=== PATIENT | female | born 1965 | race African-American/Black ===

== ENCOUNTER → 2017-03-24 | Outpatient (CLI) | payer MEDICARE ==
[~2017-03-24] MED LIST: AEROSOL THERAPY1 DEV INH; ALBUTEROL0.83 MG/ML IH; AMOXICILLIN 50500 MG PO; ASPI325T6 PO; ATIVAN0.5 MG PO; AZITHROMYCIN250 MG PO; BACTRIM DS 8001 TAB PO; BENADRYL25 M2 PO; BENTYL 10MG10 MG/CAP PO; BIAXIN; CATAFLAM50 MG PO; CELEXA 20MG20 MG/TAB PO; CELEXA PO; CELEXA40 MG PO; CEPHALEXIN500 M1 PO; CITALOPRAM10 MG PO; CLONAZEPAM0.5 MG PO; CYPROHEPTADINE H4 MG PO; DEPRESSION MED; EFFEXOR 75M75 MG/TAB PO; FLAGYL500 MG PO; FLEXERIL5 MG PO; GEODON60 MG PO; HCTZ; HCTZ 25MG TAB25 MG PO; KLONOPIN 0.5MG0.5 MG PO; LAMICTAL; LEVOTHROID0.025 MG PO; LITHIUM CA150 MG/CAP; LORTAB 5/500 501 TAB PO; MELATONIN3 M1 PO; METFORMIN HCL500 M1 PO; METFORMIN500 MG PO; MOTRIN 600600 MG/TAB PO; MOTRIN 800800 MG/TAB PO; NAPROSYN 2250 MG/TAB PO; NEXIUM40 MG PO; NO HOME MEDICATIONS; NORCO 325 MG-51 TAB PO; NORCO PO; PEPCID 20MG TAB20 MG PO; PERCOCET 325 MG1 TA2 PO; PREDNISONE 20MG20 MG PO; PREDNISONE10 MG PO; PREDNISONE20 MG PO; PRILOTC PO; RISPERDAL 1M1 MG/TAB PO; SEROQUEL50 MG PO; SIMVASTATIN20 MG PO; SIMVASTATIN40 MG PO; SYNTHROID PO; TESSALON PERLE200 MG PO; VENTOLIN0.09 MG IH; VICODIN 5/5001 UDTAB PO; ZITHROMAX Z PA250 MG PO; ZITHROMAX250 M1 PO; ZYPREXA2.5 MG; [UNRECOGNIZED DRUG - OTHER] TP; vicoprofen
== END ==
LOC: MC.RAD 10:20
DX: Z12.31 Encounter for screening mammogram for malignant neoplasm of breast (principal)

== ENCOUNTER 2017-04-07 09:23 | Day surgery (SDC) | payer MEDICARE ==
[~2017-04-07] VITALS: Ht 172.7 cm; Wt 97.7 kg
[~2017-04-07 09:23] MED LIST changes: -PRILOTC PO
[2017-04-07 09:50] VITALS: BP 148/93; PULSE 66; TEMP 98.5
[2017-04-07 12:05] VITALS: BP 172/103; PULSE 76; TEMP 97.5
[2017-04-07 12:20] VITALS: BP 121/93; PULSE 55
[2017-04-07] MEDS ORDERED: PRILOTC PO (12:26)
[2017-04-07 12:35] VITALS: BP 172/90; PULSE 55
[2017-04-07 15:47] VITALS: BP 126/69; PULSE 64
== END 2017-04-07 12:55 | disposition home or self-care (01) ==
LOC: SDCO 09:23
DX: K31.89 Other diseases of stomach and duodenum (principal); K29.30 Chronic superficial gastritis without bleeding; I10 Essential (primary) hypertension; J42 Unspecified chronic bronchitis; E78.5 Hyperlipidemia, unspecified; F31.9 Bipolar disorder, unspecified; F43.10 Post-traumatic stress disorder, unspecified; D86.9 Sarcoidosis, unspecified; F17.210 Nicotine dependence, cigarettes, uncomplicated; Z80.0 Family history of malignant neoplasm of digestive organs
CPT/HCPCS: OP; J2250; J3010; J7030

== ENCOUNTER 2018-02-21 17:06 | Emergency (ER) | payer MEDICARE ==
[~2018-02-21] VITALS: Ht 172.7 cm; Wt 95.5 kg
[~2018-02-21 17:06] MED LIST changes: +PRILOTC PO
[2018-02-21 17:48] LABS: BASO # 0.1 (0.0-0.2); BASO % 0.4 % (0.0-2.0); EOS % 0.3 % (0-4.0); GRAN # 9.2 (1.4-6.5); GRAN % 79.5 % (42.2-75.2); HEMATOCRIT 46.1 % (37.0-47.0); HEMOGLOBIN 16.3 g/dl (12.5-16.0); LYMPH # 1.6 (1.2-3.4); LYMPH % 13.5 % (20.0-51.0); MEAN CELL VOLUME 90 fl (80.0-100.0); MEAN CORPUSCULAR HEMOGLOBIN 32 pg (27.0-31.0); MEAN CORPUSCULAR HGB CONC 35 g/dl (33.0-37.0); MEAN PLATELET VOLUME 9.1 fl (7.4-10.4); MONO # 0.7 (0.1-0.6); MONO % 5.9 % (1.7-9.3); PLATELET COUNT 261 K/mm3 (130-400); REDCELL DISTRIBUTION WIDTH-CV 13.9 % (11.5-14.5)
[2018-02-21] MEDS ORDERED: HCTZ12.5TAB PO (17:53)
[2018-02-21 17:57] LABS: ALANINE AMINOTRANSFERASE 19 U/L (9-52); ALBUMIN 3.8 gm/dL (3.5-5.0); ALKALINE PHOSPHATASE 133 U/L (50-136); ANION GAP 10 mmol/L (7-16); AST,SGOT 17 U/L (15-37); BILIRUBIN,TOTAL 0.7 mg/dL (0.0-1.0); BLOOD UREA NITROGEN 9 mg/dL (7-17); CALCIUM 9.5 mg/dL (8.4-10.2); CARBON DIOXIDE 27 mmol/L (22-30); CHLORIDE 98 mmol/L (98-107); CREATININE, serum 0.68 mg/dL (0.52-1.25); GLUCOSE 113 mg/dL (74-106); LIPASE 25 U/L (23-300); POTASSIUM 3.6 mmol/L (3.4-5.0); SODIUM 135 mmol/L (137-145); TOTAL PROTEIN 7.9 gm/dL (6.4-8.2)
[2018-02-21 18:09] LABS: TROPONIN-I < 0.012 ng/mL (0.000-0.034)
[2018-02-21 18:30] VITALS: TEMP 99.7
[2018-02-21] MEDS ORDERED: PRINIVIL10 MG PO (18:59)
[2018-02-21 19:07] LABS: COLLECTION METHOD CLEAN CATCH
[2018-02-21 19:15] LABS: MUCOUS Present /lpf; PH 5 (5-8); SQUAMOUS EPITHELIAL 0-2 /hpf; URINE APPEARANCE Clear; URINE BACTERIA Rare /hpf; URINE BILIRUBIN Negative (NEGATIVE); URINE BLOOD 2+ (NEGATIVE); URINE COLOR Yellow; URINE GLUCOSE Negative (NEGATIVE); URINE KETONE Negative (NEGATIVE); URINE LEUKOCYTE ESTERASE Negative (NEGATIVE); URINE NITRATE Negative (NEGATIVE); URINE PROTEIN(semi-quant) Negative (NEGATIVE); URINE UROBILINOGEN Negative (NEGATIVE)
[2018-02-21] MEDS ORDERED: CIPRO 500MG TA500 MG PO (20:28)
[2018-02-21 20:32] VITALS: BP 150/95; PULSE 85
== END 2018-02-21 20:33 | disposition home or self-care (01) ==
LOC: COL.ER 17:06
PROVIDERS: Emergency Medicine
DX: I10 Essential (primary) hypertension (principal); N39.0 Urinary tract infection, site not specified; E78.5 Hyperlipidemia, unspecified; F43.10 Post-traumatic stress disorder, unspecified; F17.210 Nicotine dependence, cigarettes, uncomplicated; F12.90 Cannabis use, unspecified, uncomplicated; Z90.710 Acquired absence of both cervix and uterus; Z90.89 Acquired absence of other organs
CPT/HCPCS: J2060

== ENCOUNTER 2018-02-24 18:58 | Emergency (ER) | payer MEDICARE ==
[~2018-02-24] VITALS: Ht 172.7 cm; Wt 96.4 kg
[~2018-02-24 18:58] MED LIST changes: +CIPRO 500MG TA500 MG PO; +HCTZ12.5TAB PO; +PRINIVIL10 MG PO
[2018-02-24 19:02] VITALS: BP 159/98; PULSE 76; TEMP 99.2
[2018-02-24 20:21] LABS: BASO # 0.1 (0.0-0.2); BASO % 0.6 % (0.0-2.0); EOS # 0.3 (0.0-0.7); EOS % 3.4 % (0-4.0); GRAN % 56.3 % (42.2-75.2); HEMOGLOBIN 15.9 g/dl (12.5-16.0); LYMPH # 2.6 (1.2-3.4); LYMPH % 29.1 % (20.0-51.0); MEAN CELL VOLUME 92 fl (80.0-100.0); MEAN CORPUSCULAR HEMOGLOBIN 32 pg (27.0-31.0); MEAN CORPUSCULAR HGB CONC 35 g/dl (33.0-37.0); MEAN PLATELET VOLUME 9.3 fl (7.4-10.4); MONO # 0.9 (0.1-0.6); MONO % 10.3 % (1.7-9.3); PLATELET COUNT 255 K/mm3 (130-400); RED BLOOD COUNT 5.03 M/mm3 (4.10-5.30); REDCELL DISTRIBUTION WIDTH-CV 13.9 % (11.5-14.5)
[2018-02-24 20:28] LABS: ALANINE AMINOTRANSFERASE 26 U/L (9-52); ALBUMIN 3.7 gm/dL (3.5-5.0); ALKALINE PHOSPHATASE 103 U/L (50-136); ANION GAP 8 mmol/L (7-16); AST,SGOT 25 U/L (15-37); BILIRUBIN,TOTAL 0.4 mg/dL (0.0-1.0); BLOOD UREA NITROGEN 7 mg/dL (7-17); CALCIUM 8.8 mg/dL (8.4-10.2); CARBON DIOXIDE 27 mmol/L (22-30); CHLORIDE 100 mmol/L (98-107); CREATININE, serum 0.58 mg/dL (0.52-1.25); GLUCOSE 111 mg/dL (74-106); POTASSIUM 3.3 mmol/L (3.4-5.0); SODIUM 135 mmol/L (137-145); TOTAL PROTEIN 7.8 gm/dL (6.4-8.2)
[2018-02-24 20:39] LABS: TROPONIN-I < 0.012 ng/mL (0.000-0.034)
[2018-02-24 20:54] LABS: COLLECTION METHOD CLEAN CATCH
[2018-02-24 21:11] LABS: PH 5 (5-8); SQUAMOUS EPITHELIAL 0-2 /hpf; URINE APPEARANCE Clear; URINE BACTERIA Rare /hpf; URINE BILIRUBIN Negative (NEGATIVE); URINE BLOOD 2+ (NEGATIVE); URINE COLOR Yellow; URINE GLUCOSE Negative (NEGATIVE); URINE KETONE Negative (NEGATIVE); URINE LEUKOCYTE ESTERASE Negative (NEGATIVE); URINE NITRATE Negative (NEGATIVE); URINE PROTEIN(semi-quant) Negative (NEGATIVE); URINE RBC 0-2 /hpf; URINE UROBILINOGEN Negative (NEGATIVE)
[2018-02-24] MEDS ORDERED: OMNICEF 300MG300 MG PO (23:21)
[2018-02-24] MEDS ORDERED: FLEXERIL 1010 MG/TAB PO (23:21)
== END 2018-02-24 23:35 | disposition home or self-care (01) ==
LOC: COL.ER 18:58
PROVIDERS: Emergency Medicine
DX: R51 Headache (principal); R10.9 Unspecified abdominal pain; M79.1 Myalgia; F31.9 Bipolar disorder, unspecified; I10 Essential (primary) hypertension; F41.9 Anxiety disorder, unspecified; E78.5 Hyperlipidemia, unspecified; Z90.710 Acquired absence of both cervix and uterus; Z90.89 Acquired absence of other organs; Z87.891 Personal history of nicotine dependence

== ENCOUNTER → 2020-10-29 | Outpatient (CLI) | payer MEDICARE, MEDICAID ==
[~2020-10-29] MED LIST changes: +ALEVE 220MG220 MG PO; +ASPIRIN 81M81 MG/TA2 PO; +CLEOCIN HC150 MG/CAP PO; +FLEXERIL 1010 MG/TAB PO; +OMNICEF 300MG300 MG PO; +ROXICODONE 55 MG/TAB PO; +STOOL SOFTENER100 M2 PO; +VITAMIN D PO; +VITAMIND3 5000 PO
== END ==
LOC: MC.RAD 13:00
DX: N63.11 Unspecified lump in the right breast, upper outer quadrant (principal); N64.89 Other specified disorders of breast

== ENCOUNTER → 2020-11-06 | Outpatient (CLI) | payer MEDICARE, MEDICAID | LOC: MC.RAD 09:51 | DX: N63.11 Unspecified lump in the right breast, upper outer quadrant (principal); N60.41 Mammary duct ectasia of right breast ==

== ENCOUNTER 2020-12-05 06:49 | Day surgery (SDC) | payer MEDICARE, MEDICAID ==
[2020-12-05] VITALS (7 sets, daily range): BP systolic 129–150; BP diastolic 75–105; PULSE 62–70; TEMP 97.9–98.7
[~2020-12-05] VITALS: Ht 170.2 cm; Wt 88.2 kg
[~2020-12-05 06:49] MED LIST changes: -ALEVE 220MG220 MG PO; -ASPIRIN 81M81 MG/TA2 PO; -CLEOCIN HC150 MG/CAP PO; -ROXICODONE 55 MG/TAB PO; -STOOL SOFTENER100 M2 PO; -VITAMIN D PO; -VITAMIND3 5000 PO
[2020-12-05] MEDS ORDERED: CELEXA 20MG20 MG/TAB PO (11:27)
[2020-12-05] MEDS ORDERED: VITAMIND3 5000 PO (11:28)
[2020-12-05] MEDS ORDERED: ASPIRIN 81M81 MG/TA2 PO (11:28)
[2020-12-05] MEDS ORDERED: STOOL SOFTENER100 M2 PO (11:29)
[2020-12-05] MEDS ORDERED: ROXICODONE 55 MG/TAB PO (14:44)
--- NOTE | 2020-12-05 15:10 | NUR ---
Patient returns to room 6 per cart from PACU accompanied by Lizbet QUACH and is awake and alert. Temp 98.0. Dressing x2 on right axilla and right breast clean and dry. Siderails up x2 and call light in reach. Friend in room. IV fluids infusing #20G LH. Allowed to rest.
--- NOTE | 2020-12-05 15:25 | NUR ---
Resting with eyes closed and sats down to 91%. Placed on oxygen at 2L per nasal cannula. Allowed to rest.
--- NOTE | 2020-12-05 15:40 | NUR ---
Sipping on cranberry juice and denies nausea.
--- NOTE | 2020-12-05 15:55 | NUR ---
Oxygen removed and patient sitting up eating muffin. Ice bag given for right breast pain.
--- NOTE | 2020-12-05 16:10 | NUR ---
Assisted up to the bathroom and gait is steady. Voids and returns to room. IV discontinued and site is free of redness. Patient dresses self.
--- NOTE | 2020-12-05 16:30 | NUR ---
Dismissal instructions signed and patient and friend all voice understanding of home cares.
--- NOTE | 2020-12-05 16:34 | NUR ---
Patient dismissed to home driven by friend and taken to the front door per wheelchair and assisted into vehicle with instructions in hand.
[2021-01-23] MEDS ORDERED: CELEXA40 MG PO (11:45)
[2021-01-23] MEDS ORDERED: VITAMIND3 5000 PO (11:47)
[2021-01-23] MEDS ORDERED: ROXICODONE 55 MG/TAB PO (18:05)
[2021-01-26] MEDS ORDERED: ROXICODONE 55 MG/TAB PO (07:53)
[2021-02-22] MEDS ORDERED: PRINIVIL10 MG PO (20:17)
== END 2020-12-05 16:43 | disposition home or self-care (01) ==
LOC: SDCO 06:49 → COL.RAD 07:00 → SDCO 07:00
DX: C50.411 Malignant neoplasm of upper-outer quadrant of right female breast (principal); E78.5 Hyperlipidemia, unspecified; E66.9 Obesity, unspecified; F43.10 Post-traumatic stress disorder, unspecified; D86.9 Sarcoidosis, unspecified; E55.9 Vitamin D deficiency, unspecified; I10 Essential (primary) hypertension; G89.29 Other chronic pain; E11.9 Type 2 diabetes mellitus without complications; K21.9 Gastro-esophageal reflux disease without esophagitis; F31.9 Bipolar disorder, unspecified; F17.210 Nicotine dependence, cigarettes, uncomplicated; Z20.822 Contact with and (suspected) exposure to COVID-19; Z79.899 Other long term (current) drug therapy; Z91.040 Latex allergy status; Z88.8 Allergy status to other drugs, medicaments and biological substances; Z91.013 Allergy to seafood; Z88.5 Allergy status to narcotic agent; Z88.6 Allergy status to analgesic agent; Z79.82 Long term (current) use of aspirin; Z90.89 Acquired absence of other organs; Z90.710 Acquired absence of both cervix and uterus; Z80.0 Family history of malignant neoplasm of digestive organs; Z83.3 Family history of diabetes mellitus
CPT/HCPCS: A4648; A9541; J0360; J0690; J1100; J2250; J2405; J2704; J2795; J3010

== ENCOUNTER 2021-01-02 10:20 | Day surgery (SDC) | payer MEDICARE, MEDICAID ==
[~2021-01-02] VITALS: Ht 170.2 cm; Wt 85.8 kg
[~2021-01-02 10:20] MED LIST changes: +ASPIRIN 81M81 MG/TA2 PO; +ROXICODONE 55 MG/TAB PO; +STOOL SOFTENER100 M2 PO; +VITAMIND3 5000 PO
[2021-01-02] MEDS ORDERED: ALEVE 220MG220 MG PO (11:54)
[2021-01-02] MEDS ORDERED: VITAMIN D PO (11:56)
[2021-01-02 12:03] VITALS: BP 162/91; PULSE 77; TEMP 97.8
[2021-01-02] MEDS ORDERED: ROXICODONE 55 MG/TAB PO (14:49)
[2021-01-02 15:02] VITALS: TEMP 98
[2021-01-02 15:50] VITALS: BP 148/89; PULSE 78
--- NOTE | 2021-01-02 15:50 | NUR ---
Patient returns to room 1 per cart from PACU accompanied by Yaa QUACH and is awake and alert. Temp 98.3 and sats 95% on 2L per nasal cannula. Dressing clean and dry on the right breast and dry on the left port a catheter insertion site. IV fluids infusing #20G LH. Site is free of redness. Friend in room. Siderails up x2 and call light in reach.
[2021-01-02 16:05] VITALS: BP 110/53; BP 145/93; PULSE 76; PULSE 81
--- NOTE | 2021-01-02 16:05 | NUR ---
Resting and sipping on water. Offers no complaints of pain or nausea.
[2021-01-02 16:20] VITALS: BP 133/87; PULSE 72
--- NOTE | 2021-01-02 16:20 | NUR ---
Resting and sipping o water. Denies pain or nausea.
[2021-01-02 16:35] VITALS: BP 128/76; PULSE 76
--- NOTE | 2021-01-02 16:35 | NUR ---
Eating muffin and sipping on Sprite.
--- NOTE | 2021-01-02 16:50 | NUR ---
Patient tolerated muffin and sprite.
--- NOTE | 2021-01-02 17:05 | NUR ---
Complains of itching. Order for Benadryl 25mg po obtained from Freddy AVELAR and given. Will continue to monitor.
--- NOTE | 2021-01-02 17:30 | NUR ---
Assisted up to the bathroom and is unable to urinate. States that she only had one little drop of urine. Ambulates in hallway. Gait steady.
--- NOTE | 2021-01-02 17:50 | NUR ---
Returns to room and given glass of water to drink. Resting on cart.
--- NOTE | 2021-01-02 18:20 | NUR ---
Up to the bathroom and attempts to void.
--- NOTE | 2021-01-02 18:30 | NUR ---
Patient voids and returns to room. INT discontinued and site is free of redness. Given dismissal instructions and voices understanding of these. Provided follow up appointment date and time.
--- NOTE | 2021-01-02 18:38 | NUR ---
Patient dismissed to home driven by friend and taken to the front door per wheelchair and assisted into vehicle with instructions in hand.
[2021-01-23] MEDS ORDERED: CELEXA40 MG PO (11:45)
[2021-01-23] MEDS ORDERED: VITAMIND3 5000 PO (11:47)
[2021-01-23] MEDS ORDERED: ROXICODONE 55 MG/TAB PO (18:05)
[2021-01-26] MEDS ORDERED: ROXICODONE 55 MG/TAB PO (07:53)
[2021-02-22] MEDS ORDERED: PRINIVIL10 MG PO (20:17)
== END 2021-01-02 18:38 | disposition home or self-care (01) ==
LOC: SDCO 10:20
DX: C50.411 Malignant neoplasm of upper-outer quadrant of right female breast (principal); C77.3 Secondary and unspecified malignant neoplasm of axilla and upper limb lymph nodes; F17.210 Nicotine dependence, cigarettes, uncomplicated; E78.5 Hyperlipidemia, unspecified; E66.9 Obesity, unspecified; D86.9 Sarcoidosis, unspecified; E55.9 Vitamin D deficiency, unspecified; I10 Essential (primary) hypertension; K21.9 Gastro-esophageal reflux disease without esophagitis; F43.10 Post-traumatic stress disorder, unspecified; G89.29 Other chronic pain; Z20.822 Contact with and (suspected) exposure to COVID-19; Z90.89 Acquired absence of other organs; Z45.2 Encounter for adjustment and management of vascular access device; Z79.82 Long term (current) use of aspirin; Z79.899 Other long term (current) drug therapy; Z90.710 Acquired absence of both cervix and uterus; Z80.0 Family history of malignant neoplasm of digestive organs; Z83.3 Family history of diabetes mellitus; Z82.49 Family history of ischemic heart disease and other diseases of the circulatory system
CPT/HCPCS: A4648; C1788; J0360; J0690; J1100; J1170; J1644; J2405; J2704; J3010; J7030

== ENCOUNTER → 2021-02-22 | Emergency (ER) | payer MEDICARE, MEDICAID ==
[~2021-02-22] VITALS: Ht 170.2 cm; Wt 84.1 kg
[~2021-02-22] MED LIST changes: +ALEVE 220MG220 MG PO; +CLEOCIN HC150 MG/CAP PO; +VITAMIN D PO
[2021-02-22 17:38] VITALS: TEMP 98.2
[2021-02-22 18:30] LABS: BASO # 0.1 (0.0-0.2); BASO % 0.8 % (0.0-2.0); EOS # 0.2 (0.0-0.7); EOS % 1.5 % (0-4.0); GRAN # 6.3 (1.4-6.5); GRAN % 63.4 % (42.2-75.2); HEMOGLOBIN 15.2 g/dl (12.5-16.0); LYMPH # 2.6 (1.2-3.4); LYMPH % 26.1 % (20.0-51.0); MEAN CELL VOLUME 99 fl (80.0-100.0); MEAN CORPUSCULAR HEMOGLOBIN 34 pg (27.0-31.0); MEAN CORPUSCULAR HGB CONC 35 g/dl (33.0-37.0); MEAN PLATELET VOLUME 10.5 fl (7.4-10.4); MONO # 0.8 (0.1-0.6); MONO % 7.8 % (1.7-9.3); PLATELET COUNT 310 K/mm3 (130-400); RED BLOOD COUNT 4.45 M/mm3 (4.10-5.30); REDCELL DISTRIBUTION WIDTH-CV 14.6 % (11.5-14.5)
[2021-02-22 19:13] LABS: ALANINE AMINOTRANSFERASE 9 U/L (4-34); ALBUMIN 3.3 gm/dL (3.5-5.0); ALKALINE PHOSPHATASE 157 U/L (50-136); ANION GAP 2 mmol/L (7-16); AST,SGOT 23 U/L (15-37); BILIRUBIN,TOTAL 0.6 mg/dL (0.0-1.0); BLOOD UREA NITROGEN 9 mg/dL (7-17); CALCIUM 9.1 mg/dL (8.4-10.2); CARBON DIOXIDE 22 mmol/L (22-30); CHLORIDE 108 mmol/L (98-107); CREATININE, serum 0.44 (0.52-1.25); GLUCOSE 107 mg/dL (74-106); POTASSIUM 3.8 mmol/L (3.4-5.0); SODIUM 131 mmol/L (137-145); TOTAL PROTEIN 7.4 gm/dL (6.4-8.2)
[2021-02-22 19:24] LABS: TROPONIN-I < 0.012 ng/mL (0.000-0.035)
[2021-02-22 20:30] VITALS: BP 150/87; PULSE 87
== END ==
LOC: COL.ER 17:31
PROVIDERS: Family Medicine; Nurse Practitioner
DX: I10 Essential (primary) hypertension (principal); Z85.3 Personal history of malignant neoplasm of breast; Z87.891 Personal history of nicotine dependence
CPT/HCPCS: J7030

== ENCOUNTER 2021-05-16 23:07 | Emergency (ER) | payer MEDICARE, MEDICAID ==
[~2021-05-16] VITALS: Ht 172.7 cm; Wt 81.8 kg
[~2021-05-16 23:07] MED LIST changes: -CLEOCIN HC150 MG/CAP PO
[2021-05-17] MEDS ORDERED: CLEOCIN HC150 MG/CAP PO (01:33)
[2021-05-17 02:19] VITALS: BP 153/90; PULSE 69; TEMP 98
== END 2021-05-17 02:19 | disposition home or self-care (01) ==
LOC: COL.ER 23:07
DX: K04.7 Periapical abscess without sinus (principal); R51.9 Headache, unspecified; I10 Essential (primary) hypertension; F17.210 Nicotine dependence, cigarettes, uncomplicated; Z88.0 Allergy status to penicillin; Z79.899 Other long term (current) drug therapy
CPT/HCPCS: J3010

== ENCOUNTER → 2021-08-16 | Outpatient (CLI) | payer MEDICARE, MEDICAID ==
[~2021-08-16] MED LIST changes: +CLEOCIN HC150 MG/CAP PO
== END ==
LOC: MC.RAD 08-09 13:00
DX: C50.919 Malignant neoplasm of unspecified site of unspecified female breast (principal)

== ENCOUNTER → 2021-08-29 | Outpatient (CLI) | payer MEDICARE, MEDICAID ==
[~2021-08-29] VITALS: Ht 172.7 cm; Wt 82.3 kg
[~2021-08-29] MED LIST changes: +GERITOL COMPLET1 TA1 PO; +TOPROL XL 25MG25 MG PO; +VITAMIN D31000 IU PO; +[UNRECOGNIZED DRUG - OTHER] PO
[2021-08-29 09:38] VITALS: BP 159/91; PULSE 81; TEMP 98.9
[2021-08-29 10:50] VITALS: BP 161/96; PULSE 65
== END ==
LOC: COL.RAD 09:05
DX: C50.311 Malignant neoplasm of lower-inner quadrant of right female breast (principal); R59.0 Localized enlarged lymph nodes
CPT/HCPCS: 32108

== ENCOUNTER 2021-09-12 09:19 | Emergency (ER) | payer MEDICARE, MEDICAID ==
[~2021-09-12] VITALS: Ht 165.1 cm; Wt 81.8 kg
[2021-09-12 09:27] VITALS: TEMP 99.4
[2021-09-12] MEDS ORDERED: CLEOCIN HCL300 MG PO (09:43)
[2021-09-12] MEDS ORDERED: ROXICODONE 55 MG/TAB PO (09:43)
[2021-09-12] MEDS ORDERED: PERIDEX (CHLOR480 ML MM (10:35)
[2021-09-12 10:46] VITALS: BP 140/80; PULSE 80
== END 2021-09-12 10:46 | disposition home or self-care (01) ==
LOC: COL.ER 09:19
DX: K04.7 Periapical abscess without sinus (principal); C50.919 Malignant neoplasm of unspecified site of unspecified female breast; F17.200 Nicotine dependence, unspecified, uncomplicated; Z91.040 Latex allergy status; Z88.0 Allergy status to penicillin; Z88.6 Allergy status to analgesic agent
CPT/HCPCS: J0696; J3010

== ENCOUNTER 2022-02-28 13:58 | Emergency (ER) | payer MEDICARE, MEDICAID ==
[~2022-02-28] VITALS: Ht 170.2 cm; Wt 79.1 kg
[~2022-02-28 13:58] MED LIST changes: +CLEOCIN HCL300 MG PO; +PERIDEX (CHLOR480 ML MM
[2022-02-28 14:42] VITALS: TEMP 98.6
[2022-02-28 15:26] LABS: BASO # 0.1 K/mm3 (0.0-0.2); BASO % 0.7 % (0.0-2.0); EOS # 0.1 K/mm3 (0.0-0.7); EOS % 1.3 % (0.0-4.0); GRAN # 5.9 K/mm3 (1.4-6.5); GRAN % 68.9 % (42.2-75.2); HEMATOCRIT 45.6 % (37.0-47.0); HEMOGLOBIN 16.4 g/dl (12.5-16.0); LYMPH # 1.7 K/mm3 (1.2-3.4); LYMPH % 19.9 % (20.0-51.0); MEAN CELL VOLUME 102 fl (80.0-100.0); MEAN CORPUSCULAR HEMOGLOBIN 37 pg (27-31); MEAN CORPUSCULAR HGB CONC 36 g/dl (33.0-37.0); MEAN PLATELET VOLUME 9.1 fl (7.4-10.4); MONO # 0.8 K/mm3 (0.1-0.6); MONO % 9.1 % (1.7-9.3); PLATELET COUNT 206 K/mm3 (130-400); RED BLOOD COUNT 4.49 M/mm3 (4.10-5.30); REDCELL DISTRIBUTION WIDTH-CV 13.9 % (11.5-14.5)
[2022-02-28 15:58] LABS: ALANINE AMINOTRANSFERASE 10 U/L (0-55); ALKALINE PHOSPHATASE 131 U/L (40-150); ANION GAP 13 mmol/L (7-16); AST,SGOT 13 U/L (5-34); BLOOD UREA NITROGEN 5 mg/dL (10-20); CALCIUM 9.3 mg/dL (8.4-10.2); CARBON DIOXIDE 21 mmol/L (22-29); CHLORIDE 102 mmol/L (98-107); CREATININE, serum 0.63 mg/dL (0.57-1.11); GLUCOSE 100 mg/dL (70-99); POTASSIUM 4.1 mmol/L (3.5-4.5); SODIUM 136 mmol/L (136-145); TOTAL PROTEIN 7.6 gm/dL (6.2-8.1)
[2022-02-28 15:59] LABS: COLLECTION METHOD CLEAN CATCH
[2022-02-28 16:02] LABS: LIPASE < 4 U/L (8-78)
[2022-02-28 16:13] LABS: MUCOUS Present (NOT PRESENT); PH 5 (5-8); URINE APPEARANCE Hazy (CLEAR/HAZY); URINE BACTERIA Rare /hpf (NONE SEEN); URINE BLOOD Negative (NEGATIVE); URINE COLOR Amber (YELLOW); URINE GLUCOSE Negative (NEGATIVE); URINE KETONE Trace (NEGATIVE); URINE NITRATE Negative (NEGATIVE); URINE PROTEIN(semi-quant) Negative (NEGATIVE); URINE UROBILINOGEN >=4.0 (NEGATIVE)
[2022-02-28] MEDS ORDERED: PERCOCET 325 MG1 TA2 PO (17:36)
[2022-02-28 18:11] VITALS: BP 140/86; PULSE 56
== END 2022-02-28 18:11 | disposition home or self-care (01) ==
LOC: COL.ER 13:58
PROVIDERS: Physician Assistant
DX: M54.50 Low back pain, unspecified (principal); Z85.3 Personal history of malignant neoplasm of breast; Z91.040 Latex allergy status; Z88.5 Allergy status to narcotic agent; Z28.310 Unvaccinated for COVID-19
CPT/HCPCS: J3010; J7030